=== PATIENT | male | born 1965 | race Caucasian/White ===

== ENCOUNTER 2023-09-24 22:21 | Emergency (ER) | payer MEDICARE, SELFPAY ==
[2023-09-24 22:27] VITALS: BP 198/126; PULSE 92; TEMP 36.7; O2SAT 98; BMI 45.0
--- NOTE | 2023-09-24 22:50 | ED_ITS ---
HPI - Skin/Abscess/Foreign Bdy General Chief complaint: Skin/Abscess/Foreign Body Stated complaint: Abscess on back of neck Time Seen by Provider: 09/24/23 22:50 Source: patient Mode of arrival: walk-in Limitations: no limitations History of Present Illness HPI narrative: patient presents complaining of a bump on the back of his neck. present for past 5 days. Mild pain. no fever, chills or nausea. Denies history of similar problems Related Data Allergies Allergy/AdvReac Type Severity Reaction Status Date / Time Penicillins Allergy Unknown Verified 09/24/23 22:32 Review of Systems 2 ROS0 Status of ROS 10 or more systems reviewed and unremark able except as noted in history and below Exam Constitutional Vital Signs, click to edit/add: Last Vital Signs Temp 98.0 F 09/24/23 22:27 Pulse 92 H 09/24/23 22:27 Resp 18 09/24/23 22:27 BP 198/126 H 09/24/23 22:27 Pulse Ox 98 09/24/23 22:27 O2 Del Method Room Air 09/24/23 22:27 Common normals: no apparent distress, average body habitus, oriented x3, no limitations, healthy appearing, alert and well nourished [facility] Common normals: normocephalic and head/scalp atraumatic Eye Common normals: EOMs intact bilaterally and conjunctivae normal Neck & C-Spine Neck images: 2 1. abscess-superficial non fluctuant Respiratory Common normals: normal respiratory effort, no retractions, no use of accessory muscles and clear to auscultation bilaterally Cardio Common normals: regular rate, regular rhythm, S1 normal heart sound and S2 normal heart sound Extremity Common normals: normal to inspection and full ROM Neuro Common normals: oriented x3, CN's II-XII intact bilaterally, moves all extremities and no focal motor deficits Psych Appearance: grossly normal Course Vital Signs Vital signs: Vital Signs Temperature 98.0 F 09/24/23 22:27 Pulse Rate 92 H 09/24/23 22:27 Respiratory Rate 18 09/24/23 22:27 Blood Pressure 198/126 H 09/24/23 22:27 Pulse Oximetry 98 09/24/23 22:27 Oxygen Delivery Method Room Air 09/24/23 22:27 Temperature 98.0 F 09/24/23 22:27 Pulse Rate 92 H 09/24/23 22:27 Respiratory Rate 18 09/24/23 22:27 Blood Pressure 198/126 H 09/24/23 22:27 Pulse Oximetry 98 09/24/23 22:27 Oxygen Delivery Method Room Air 09/24/23 22:27 MDM - Skin/Abscess/Foreign Bdy MDM Narrative Medical decision making narrative: patient presents with 24 cent size abscess posterior base of his neck. firm and not fluctuant. Mild tenderness. No associated streaks or surrounding swelling. Patient informed of the plan to treat with antibiotics as I don't feel it has to be incised at this point. may require incision later if not improving with the antibiotics. Discharged home with plan of close follow up Discharge Plan Discharge Stand Alone Forms: Portal Instructions Chief Complaint: Skin/Abscess/Foreign Body Clinical Impression: Abscess of skin or subcutaneous tissue Patient Disposition: Home, Self-Care Print Language: Amharic Instructions: Abscess (ED) Additional Instructions: follow up with your doctor in the next 2-3 days for recheck Referrals: Farheen Cole [employer] [Primary Care Provider] - 1 week
[2023-09-24] MEDS: CLINDAMYCIN HCL 150 MG CAPSULE 300 MG PO (23:05)
== END 2023-09-24 23:17 | disposition home or self-care (01) ==
PROVIDERS: Emergency Provider Internal Medicine; PCP Nurse Practitioner
DX: L02.11 Cutaneous abscess of neck (principal)
CPT/HCPCS: 99283